=== PATIENT | male | born 1965 | race Caucasian/White ===

== ENCOUNTER → 2022-04-20 16:40 | Outpatient (CLI) | payer BC, SELFPAY ==
--- NOTE | ~2022-04-20 | MR_ITS ---
EXAMINATION: MR knee RT wo con DATE: 04/20/2022 17:30 INDICATION: Chondromalacia patella. Right knee pain. TECHNIQUE: Magnetic resonance imaging (MRI) of the right knee was performed without intravenous contr ast. Sequences included axial PD-weighted FS FSE, coronal PD-weighted FSE and PD-weighted FS FSE, sag ittal PD-weighted FSE, and sagittal T2-weighted FS FSE. COMPARISON: Right knee radiographs 04/07/2022 FINDINGS: Medial compartment: There is an undersurface horizontal tear of posterior horn of medial meniscus. Tibial cartilage is no rmal. There is cartilage surface regularity of femoral condyle. Lateral compartment: Lateral meniscus is normal. Lateral compartment cartilage is normal. Patellofemoral compartment: There is cartilage loss of patellar medial facet including full-thickness fissuring with intra-articu lar osteophyte and mild subchondral edema-like marrow signal intensity. Trochlear cartilage is normal . Ligaments and tendons: The anterior and posterior cruciate ligaments are normal. Medial collateral ligament is normal. There are changes of prior sprain of fibular collateral ligament characterized by thickening and increased signal intensity proximally. There is mild patellar tendinopathy. Fluid: There is a small knee joint effusion. IMPRESSION: 1. Severe patellar chondrosis. Mild chondrosis of medial femoral condyle. 2. Tear of medial meniscus. 3. Small knee joint effusion. Reviewed, dictated and finalized at location A.
== END ==
PROVIDERS: PCP Family Medicine Adolescent Medicine; Visit Provider Orthopaedic Surgery
DX: S83.241A Other tear of medial meniscus, current injury, right knee, initial encounter (principal); M25.461 Effusion, right knee
CPT/HCPCS: 73721

== ENCOUNTER → 2022-06-09 07:42 | Outpatient (CLI) | payer BC, SELFPAY ==
--- NOTE | ~2022-06-09 | MR_ITS ---
EXAMINATION: MR knee LT wo con DATE: 06/09/2022 08:15 INDICATION: Chronic left knee pain. TECHNIQUE: Magnetic resonance imaging (MRI) of the left knee was performed without intravenous contra st. Sequences included axial PD-weighted FS FSE, coronal PD-weighted FSE and PD-weighted FS FSE, sagi ttal PD-weighted FSE, and sagittal T2-weighted FS FSE. COMPARISON: Left knee radiographs 04/07/2022 FINDINGS: Medial compartment: Medial meniscus is normal. There is shallow partial-thickness cartilage loss of femoral condyle later ally. Tibial cartilage is normal. Lateral compartment: Lateral meniscus is normal. Lateral compartment cartilage is normal. Patellofemoral compartment: There is cartilage surface irregularity of patellar odd facet. There is cartilage surface irregularit y of medial trochlea. Ligaments and tendons: The anterior and posterior cruciate ligaments are normal. Medial collateral ligament and lateral gavino ateral ligament complex are normal. There is mild patellar tendinopathy. Fluid: There is no knee joint effusion. There is mild semimembranosus-tibial collateral ligament bursitis an d mild pes anserinus bursitis. IMPRESSION: 1. Mild chondrosis of medial and patellofemoral compartments. 2. Mild semimembranosus-tibial collateral ligament bursitis and mild pes anserinus bursitis. Reviewed, dictated and finalized at location A. 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 Mild chondrosis of medial and patellofemoral compartments. 2. Mild semimembranosus-tibial collateral ligament bursitis and mild pes anseri nus bursitis.
== END ==
PROVIDERS: PCP Family Medicine Adolescent Medicine
DX: M25.562 Pain in left knee (principal); G89.29 Other chronic pain; M22.2X2 Patellofemoral disorders, left knee; M71.562 Other bursitis, not elsewhere classified, left knee
CPT/HCPCS: 73721

== ENCOUNTER → 2023-01-21 07:36 | Outpatient (CLI) | payer BC, SELFPAY ==
--- NOTE | ~2023-01-21 | MR_ITS ---
EXAMINATION: MR knee RT wo con DATE: 01/21/2023 08:16 INDICATION: Anterior right knee pain TECHNIQUE: Magnetic resonance imaging (MRI) of the right knee was performed without intravenous contr ast. Sequences included coronal PD-weighted FSE, coronal PD-weighted FS FSE, sagittal T2-weighted FS E, sagittal PD-weighted FS FSE and axial PD weighted fat saturated FSE. COMPARISON: None. FINDINGS: Medial compartment: The prior horizontal tear plane at the posterior horn of the medial meniscus is no longer visualized. The posterior horn appears slightly smaller with a more rounded appearance to the inner free edge co nsistent with change of prior partial meniscectomy. No evident residual or recurrent meniscal tear ap preciated. Persistent mild chondral surface irregularity along the lateral side of the anterior to ce ntral weightbearing medial femoral condyle. Lateral compartment: Lateral meniscus is normal. Articular cartilage is normal. Patellofemoral compartment: No significant change in extent of a small region of chondral ulceration and deep fissuring with mild underlying edema-like signal change at the cephalad aspect of the apical ridge and immediately adjac ent medial facet. Within the region of chondromalacia and slightly cephalad to the previously noted t iny central subchondral osteophyte is a new 4 x 3 mm shallow defect along the underlying articular co rtex. Small region of shallow chondral ulceration at the inferior aspect of the trochlear groove. Ligaments and tendons: Anterior and posterior cruciate ligaments are normal. The medial collateral ligament and fibular gavino ateral ligament complex are normal. The extensor mechanism is normal. The visualized medial and later al hamstring tendons as well as the iliotibial band are normal. Fluid: Physiologic amount of fluid in the joint space. No loose osteochondral bodies identified. Tiny Alcaraz' s cyst. Osseous/other: Aside from at the patella, there is normal marrow signal. No fracture or pathologic marrow replacing process. IMPRESSION: 1. Slight progression in small region of high-grade chondromalacia at the cephalad aspect of the apic al ridge and immediately adjacent medial patellar facet and with new small region of moderate grade c hondromalacia along the inferior aspect of the trochlear groove. 2. Expected appearance post partial meniscectomy of the posterior horn of the medial meniscus with no evident residual/recurrent tear. Reviewed, dictated and finalized at location A. IMPRESSION: 1. Slight progression in small region of high-grade chondromalacia at the cepha lad aspect of the apical ridge and immediately adjacent medial patellar facet a nd with new small region of moderate grade chondromalacia along the inferior as pect of the trochlear groove. 2. Expected appearance post partial meniscectomy of the posterior horn of the m edial meniscus with no evident residual/recurrent tear.
== END ==
PROVIDERS: PCP Family Medicine Adolescent Medicine; Visit Provider Orthopaedic Surgery Sports Medicine
DX: M25.561 Pain in right knee (principal); Z98.890 Other specified postprocedural states
CPT/HCPCS: 73721